=== PATIENT | male | born 1990 | race Caucasian/White ===

== ENCOUNTER 2017-11-17 00:54 | Emergency (ER) | payer OTHER ==
[~2017-11-17] VITALS: Ht 175.3 cm; Wt 83.9 kg
[2017-11-17] MEDS ORDERED: BACTRIM DS TAB1 EAC1 PO (01:13)
[2017-11-17 01:26] VITALS: BP 130/86
== END 2017-11-17 01:27 | disposition home or self-care (01) ==
LOC: M.ERS 00:54
DX: L02.01 Cutaneous abscess of face (principal); F17.210 Nicotine dependence, cigarettes, uncomplicated

== ENCOUNTER 2018-01-15 11:58 | Emergency (ER) | payer OTHER ==
[~2018-01-15] VITALS: Ht 177.8 cm; Wt 81.7 kg
[~2018-01-15 11:58] MED LIST: BACTRIM DS TAB1 EAC1 PO
[2018-01-15 12:23] LABS: URINE BILIRUBIN NEGATIVE (Negative); URINE BLOOD 1+ (Negative); URINE CLARITY CLEAR; URINE COLOR YELLOW; URINE GLUCOSE-RANDOM NEGATIVE (Negative); URINE KETONES NEGATIVE (Negative); URINE NITRITE-REFLEX NEGATIVE (Negative); URINE PROTEIN TRACE (Negative); URINE SPECIFIC GRAVITY 1.025 (1.005-1.030); URINE UROBILINOGEN 0.2 E.U./dl (0.2-1.0)
[2018-01-15 12:26] LABS: URINE LEUKOCYTES-REFLEX 2+ (Negative)
[2018-01-15 12:29] LABS: SQUAMOUS NONE SEEN /LPF (0-3); URINE RBC 3-10 Few /HPF (0-2); URINE WBC-REFLEX >25 Many /HPF (0-5)
[2018-01-15 12:30] LABS: BACTERIA-REFLEX 1-9 Few /HPF (None Seen); CASTS None Seen /LPF (None Seen); CRYSTALS None Seen /LPF (None Seen)
[2018-01-15] MEDS ORDERED: MACROBID 100 M100 M3 PO (12:45)
[2018-01-15 12:57] VITALS: BP 112/77
== END 2018-01-15 12:57 | disposition home or self-care (01) ==
LOC: M.ERS 11:58
PROVIDERS: Family Medicine
DX: N39.0 Urinary tract infection, site not specified (principal); A64 Unspecified sexually transmitted disease; F17.210 Nicotine dependence, cigarettes, uncomplicated

== ENCOUNTER 2021-01-31 21:44 | Inpatient (IN) | payer OTHER ==
[~2021-01-31] VITALS: Ht 172.7 cm; Wt 82.6 kg
[~2021-01-31 21:44] MED LIST changes: +MACROBID 100 M100 M3 PO
[2021-01-31 21:53] VITALS: BP 134/86
[2021-01-31 22:10] LABS: ABSOLUTE BASOPHILS 0.1 thou/uL (0.0-0.2); ABSOLUTE EOSINOPHILS 0.2 thou/uL (0.0-0.7); ABSOLUTE LYMPHOCYTES 2.5 thou/uL (0.8-5.3); ABSOLUTE MONOCYTES 0.8 thou/uL (0.0-1.2); ABSOLUTE NEUTROPHILS 10.9 thou/uL (1.6-8.1); BASOPHILS 0.9 %; EOSINOPHILS 1.5 %; HEMOGLOBIN 15.9 gm/dL (14.0-18.0); LYMPHOCYTES 17.3 %; MCH 33.6 pg (26.0-34.0); MCHC 34.5 g/dL (28.0-37.0); MCV 97.4 fL (80.0-100.0); MONOCYTES 5.5 %; MPV 7.1 fl. (7.2-11.1); NUCLEATED RBCS 0 /100WBC; PLATELET COUNT* 385 thou/uL (150-400); POLYS 74.8 %; RBC 4.72 mil/uL (4.50-6.00); RDW-CV 13.2 % (10.5-14.5); WBC 14.6 thou/uL (4.0-11.0)
[2021-01-31 22:21] LABS: CALCIUM 9.2 mg/dL (8.5-10.1); CREATININE 1.1 mg/dL (0.6-1.3); POTASSIUM 3.3 mmol/L (3.5-5.1); URINE BILIRUBIN NEGATIVE (Negative); URINE BLOOD NEGATIVE (Negative); URINE CLARITY CLEAR; URINE COLOR YELLOW; URINE GLUCOSE-RANDOM NEGATIVE (Negative); URINE KETONES NEGATIVE (Negative); URINE LEUKOCYTES-REFLEX NEGATIVE (Negative); URINE NITRITE-REFLEX NEGATIVE (Negative); URINE PROTEIN TRACE (Negative); URINE SPECIFIC GRAVITY >= 1.030 (1.005-1.030); URINE UROBILINOGEN 0.2 E.U./dl (0.2-1.0)
[2021-01-31 22:27] LABS: ALBUMIN 4.2 g/dL (3.4-5.0); TOTAL BILIRUBIN 0.5 mg/dL (<0.1-1.0); TOTAL PROTEIN 8.4 g/dL (6.4-8.2)
[2021-02-01 05:00] VITALS: BP 104/65
[2021-02-01 08:26] VITALS: BP 103/65
[2021-02-01] MEDS ORDERED: AUGMENTIN 875-1 EACH PO (09:11)
[2021-02-01 10:52] VITALS: BP 103/65
--- NOTE | 2021-02-01 11:06 | NUR ---
PT INPATIENT DISCHARGE DONE BY JENNIFER JOSE
[2021-02-01 11:07] VITALS: BP 117/63
== END 2021-02-01 11:07 | disposition home or self-care (01) | DRG 392 ==
LOC: M.ERS 21:44 → M.TBA-ER 02-01 00:56
PROVIDERS: Personal Emergency Response Attendant; ADMIT Internal Medicine; ATTEND Internal Medicine
DX: K52.9 Noninfective gastroenteritis and colitis, unspecified (principal); E87.6 Hypokalemia; F17.210 Nicotine dependence, cigarettes, uncomplicated; Z20.822 Contact with and (suspected) exposure to COVID-19

== ENCOUNTER 2021-04-10 10:49 | Emergency (ER) | payer OTHER ==
[~2021-04-10] VITALS: Ht 177.8 cm; Wt 78.9 kg
[~2021-04-10 10:49] MED LIST changes: +AUGMENTIN 875-1 EACH PO
[2021-04-10] MEDS ORDERED: PROAIR HFA8.5 GM INH (12:08)
[2021-04-10 12:14] VITALS: BP 119/72
== END 2021-04-10 12:15 | disposition home or self-care (01) ==
LOC: M.ERS 10:49
DX: J06.9 Acute upper respiratory infection, unspecified (principal); R42 Dizziness and giddiness; F17.210 Nicotine dependence, cigarettes, uncomplicated